=== PATIENT | male | born 1955 | race Caucasian/White ===

== ENCOUNTER 2021-02-07 14:13 | Inpatient (IN) | payer OTHER ==
[2021-02-07] MEDS ORDERED: MAG HYDROX/AL HYDROX/SIMETH 30 ML UNIT-DOSE CUP PO PRN (15:59)
[2021-02-07] MEDS ORDERED: cloNIDine HCL 0.1 MG TABLET PO PRN (15:59)
[2021-02-07] MEDS ORDERED: methaDONE HCL 10 MG TABLET (FOR DETOX USE ONLY) PO ONE (15:59)
[2021-02-07] MEDS ORDERED: ONDANSETRON *ODT* 4 MG TABLET SL PRN (15:59)
[2021-02-07] MEDS ORDERED: MAGNESIUM HYDROX 2400MG/30ML ORAL SUSPENSION 30 ML CUP PO PRN (15:59)
[2021-02-07] MEDS ORDERED: MENTHOL/PHENOL 1 EACH UD MM PRN (15:59)
[2021-02-07] MEDS ORDERED: IBUPROFEN 400 MG TABLET (FP) PO PRN (15:59)
[2021-02-07] MEDS ORDERED: MAGNESIUM CITRATE 300 ML BOTTLE PO PRN (15:59)
[2021-02-07] MEDS ORDERED: ACETAMINOPHEN 325 MG TABLET (FP) PO PRN (15:59)
[2021-02-07] MEDS ORDERED: BISMUTH SUBSALICYLATE 524 MG/30 ML PO PRN (15:59)
[2021-02-07 18:08] VITALS: BMI 21.6
[2021-02-07] MEDS: hydrOXYzine PAMOATE 25 MG CAPSULE (FP) PO SCH ×2 (18:55→22:25)
[2021-02-07] MEDS: NICOTINE 14 MG/24 HOURS TOPICAL PATCH TD SCH (18:56)
[2021-02-07] MEDS: PRENATAL VITAMINS W/ FOLIC ACID TABLET (FP) PO SCH (18:56)
[2021-02-07] MEDS: ACETAMINOPHEN 325 MG TABLET (FP) PO PRN (20:31)
[2021-02-07] MEDS: MELATONIN 5 MG TABLETS PO SCH (22:25)
[2021-02-07] MEDS: THIAMINE HCL 100 MG TABLET (FP) PO SCH (22:25)
[2021-02-07] MEDS: METHOCARBAMOL 500 MG TABLET PO PRN (22:25)
[2021-02-07] MEDS: BUDESONIDE/FORMETEROL FUMARATE 160/4.5 mcg INHALER IH SCH (22:26)
[2021-02-08] MEDS: ALBUTEROL SO4 HFA INHALER IH PRN ×3 (00:15→18:15)
[2021-02-08] MEDS: ACETAMINOPHEN 325 MG TABLET (FP) PO PRN (02:38)
[2021-02-08] MEDS: hydrOXYzine PAMOATE 25 MG CAPSULE (FP) PO SCH ×5 (06:27→22:45)
[2021-02-08] MEDS ORDERED: methaDONE HCL 10 MG TABLET (FOR DETOX USE ONLY) ONE (09:40)
[2021-02-08] MEDS: BUDESONIDE/FORMETEROL FUMARATE 160/4.5 mcg INHALER IH SCH ×2 (09:53→22:46)
[2021-02-08] MEDS: PRENATAL VITAMINS W/ FOLIC ACID TABLET (FP) PO SCH (09:53)
[2021-02-08] MEDS: METHOCARBAMOL 500 MG TABLET PO PRN ×2 (09:54→18:15)
[2021-02-08] MEDS: NICOTINE 14 MG/24 HOURS TOPICAL PATCH TD SCH (09:57)
[2021-02-08 10:42] LABS: HEMATOCRIT 35.2 % (35.4-49); HEMOGLOBIN 11.6 GM/dL (11.7-16.9); MCH 30.9 pg (25.7-33.7); MCHC 33.1 g/dl (32.0-35.9); MEAN CELL VOLUME 93.5 fl (80-96); MEAN PLT VOLUME 9.1 fl (7.5-11.1); PLATELET COUNT 195 10^3/uL (134-434); RBC 3.76 M/mm3 (4.00-5.60); RDW 13.7 % (11.9-15.9); WHITE BLOOD COUNT 6.5 K/mm3 (4.0-10.0)
[2021-02-08 10:48] LABS: ALBUMIN 3.2 g/dl (3.4-5.0)
[2021-02-08 10:49] LABS: BLOOD UREA NITROGEN 33.2 mg/dL (7-18)
[2021-02-08 10:51] LABS: CREATININE 0.8 mg/dL (0.55-1.3)
[2021-02-08 10:53] LABS: BILIRUBIN,TOTAL 0.4 mg/dL (0.2-1); TOT PROT 6.6 g/dl (6.4-8.2)
[2021-02-08] MEDS: TIOTROPIUM BROMIDE 2.5 MCG (SPIRIVA) RESPIMAT INHALER IH SCH (13:22)
[2021-02-08] MEDS: THIAMINE HCL 100 MG TABLET (FP) PO SCH (22:45)
[2021-02-08] MEDS: MELATONIN 5 MG TABLETS PO SCH (22:45)
[2021-02-09] MEDS: ACETAMINOPHEN 325 MG TABLET (FP) PO PRN (01:47)
[2021-02-09] MEDS: hydrOXYzine PAMOATE 25 MG CAPSULE (FP) PO SCH ×2 (06:07→11:56)
[2021-02-09] MEDS: ALBUTEROL SO4 HFA INHALER IH PRN (06:07)
[2021-02-09 09:52] VITALS: BP 144/85; PULSE 76; TEMP 97.1
[2021-02-09] MEDS ORDERED: methaDONE HCL 10 MG TABLET (FOR DETOX USE ONLY) PO ONE (10:00)
[2021-02-09] MEDS: BUDESONIDE/FORMETEROL FUMARATE 160/4.5 mcg INHALER IH SCH (11:55)
[2021-02-09] MEDS: TIOTROPIUM BROMIDE 2.5 MCG (SPIRIVA) RESPIMAT INHALER IH SCH (11:55)
[2021-02-09] MEDS: PRENATAL VITAMINS W/ FOLIC ACID TABLET (FP) PO SCH (11:55)
[2021-02-09] MEDS: NICOTINE 14 MG/24 HOURS TOPICAL PATCH TD SCH (11:55)
[2021-02-11] MEDS ORDERED: methaDONE HCL 10 MG TABLET (FOR DETOX USE ONLY) PO ONE (10:00)
== END 2021-02-09 12:40 | disposition left against medical advice (07) | DRG 894 ==
LOC: YASAS 14:13 → Y6N 18:00
PROVIDERS: ADMIT Allergy & Immunology; ATTEND Allergy & Immunology
PROC: HZ2ZZZZ Detoxification Services for Substance Abuse Treatment (ICD-10-PCS; principal; 2021-02-07)
DX: F11.23 Opioid dependence with withdrawal (principal); F17.210 Nicotine dependence, cigarettes, uncomplicated; J44.9 Chronic obstructive pulmonary disease, unspecified; R79.89 Other specified abnormal findings of blood chemistry; R73.09 Other abnormal glucose; R06.02 Shortness of breath; Z99.81 Dependence on supplemental oxygen
CPT/HCPCS: 36415; 80053; 85027; 86780; C9803; J0735; U0003; U0005

== ENCOUNTER 2021-05-07 12:04 | Inpatient (IN) | payer OTHER ==
[2021-05-07] MEDS ORDERED: MAGNESIUM CITRATE 300 ML BOTTLE PO PRN (12:46)
[2021-05-07] MEDS ORDERED: BISMUTH SUBSALICYLATE 524 MG/30 ML PO PRN (12:46)
[2021-05-07] MEDS ORDERED: cloNIDine HCL 0.1 MG TABLET PO PRN (12:46)
[2021-05-07] MEDS ORDERED: ACETAMINOPHEN 325 MG TABLET (FP) PO PRN ×2 (12:46)
[2021-05-07] MEDS ORDERED: ONDANSETRON *ODT* 4 MG TABLET SL PRN (12:46)
[2021-05-07] MEDS ORDERED: MENTHOL/PHENOL 1 EACH UD MM PRN (12:46)
[2021-05-07] MEDS ORDERED: MAGNESIUM HYDROX 2400MG/30ML ORAL SUSPENSION 30 ML CUP PO PRN (12:46)
[2021-05-07] MEDS ORDERED: NALOXONE (NARCAN) HCL 4 MG/0.1 ML SPRAY NS PRN (12:46)
[2021-05-07] MEDS ORDERED: NICOTINE 10 MG CARTRIDGE (INHALER) IH PRN (12:46)
[2021-05-07] MEDS ORDERED: MAG HYDROX/AL HYDROX/SIMETH 30 ML UNIT-DOSE CUP PO PRN (12:46)
[2021-05-07] MEDS ORDERED: LOPERAMIDE HCL 2 MG CAPSULE PO PRN (12:46)
[2021-05-07 14:33] VITALS: BMI 21.4
[2021-05-07] MEDS: hydrOXYzine PAMOATE 25 MG CAPSULE (FP) PO SCH ×3 (17:45→22:10)
[2021-05-07] MEDS: PRENATAL VITAMINS W/ FOLIC ACID TABLET (FP) PO SCH (17:45)
[2021-05-07] MEDS: NICOTINE 14 MG/24 HOURS TOPICAL PATCH TD SCH (17:49)
[2021-05-07] MEDS ORDERED: methaDONE HCL 10 MG TABLET (FOR DETOX USE ONLY) PO ONE (18:00)
[2021-05-07] MEDS: MELATONIN 5 MG TABLETS PO SCH (22:10)
[2021-05-07] MEDS: THIAMINE HCL 100 MG TABLET (FP) PO SCH (22:10)
[2021-05-07] MEDS: BUDESONIDE/FORMETEROL FUMARATE 160/4.5 mcg INHALER IH SCH (22:52)
[2021-05-08] MEDS: hydrOXYzine PAMOATE 25 MG CAPSULE (FP) PO SCH ×5 (07:48→22:17)
[2021-05-08] MEDS ORDERED: methaDONE HCL 10 MG TABLET (FOR DETOX USE ONLY) ONE (09:12)
[2021-05-08] MEDS: PRENATAL VITAMINS W/ FOLIC ACID TABLET (FP) PO SCH (09:36)
[2021-05-08] MEDS: NICOTINE 14 MG/24 HOURS TOPICAL PATCH TD SCH (09:36)
[2021-05-08] MEDS: IBUPROFEN 400 MG TABLET (FP) PO PRN (09:37)
[2021-05-08] MEDS: BUDESONIDE/FORMETEROL FUMARATE 160/4.5 mcg INHALER IH SCH ×2 (09:37→22:17)
[2021-05-08 09:45] LABS: HEMATOCRIT 39.6 % (35.4-49); HEMOGLOBIN 13.1 GM/dL (11.7-16.9); MCH 30.6 pg (25.7-33.7); MCHC 33.1 g/dl (32.0-35.9); MEAN CELL VOLUME 92.7 fl (80-96); MEAN PLT VOLUME 9.8 fl (7.5-11.1); PLATELET COUNT 209 10^3/uL (134-434); RBC 4.28 M/mm3 (4.00-5.60); RDW 14.2 % (11.9-15.9); WHITE BLOOD COUNT 3.8 K/mm3 (4.0-10.0)
[2021-05-08 09:51] LABS: ALBUMIN 3.9 g/dl (3.4-5.0); CALCIUM 9.8 mg/dL (8.5-10.1)
[2021-05-08 09:54] LABS: CREATININE 0.8 mg/dL (0.55-1.3)
[2021-05-08 09:56] LABS: BILIRUBIN,TOTAL 0.4 mg/dL (0.2-1); TOT PROT 7.3 g/dl (6.4-8.2)
[2021-05-08] MEDS: THIAMINE HCL 100 MG TABLET (FP) PO SCH (22:17)
[2021-05-08] MEDS: MELATONIN 5 MG TABLETS PO SCH (22:18)
[2021-05-09] MEDS: hydrOXYzine PAMOATE 25 MG CAPSULE (FP) PO SCH ×5 (06:35→22:15)
[2021-05-09 07:08] LABS: SARS-CoV-2 NAA Not Detected (Not Detected)
[2021-05-09] MEDS ORDERED: methaDONE HCL 10 MG TABLET (FOR DETOX USE ONLY) PO ONE (10:00)
[2021-05-09] MEDS: NICOTINE 14 MG/24 HOURS TOPICAL PATCH TD SCH (10:21)
[2021-05-09] MEDS: BUDESONIDE/FORMETEROL FUMARATE 160/4.5 mcg INHALER IH SCH ×2 (10:21→22:15)
[2021-05-09] MEDS: PRENATAL VITAMINS W/ FOLIC ACID TABLET (FP) PO SCH (10:21)
[2021-05-09] MEDS: IBUPROFEN 400 MG TABLET (FP) PO PRN ×2 (10:24→18:19)
[2021-05-09] MEDS: ALBUTEROL SO4 HFA INHALER IH PRN (18:18)
[2021-05-09] MEDS: THIAMINE HCL 100 MG TABLET (FP) PO SCH (22:15)
[2021-05-09] MEDS: MELATONIN 5 MG TABLETS PO SCH (22:15)
[2021-05-09] MEDS: METHOCARBAMOL 500 MG TABLET PO PRN (22:15)
[2021-05-10] MEDS: hydrOXYzine PAMOATE 25 MG CAPSULE (FP) PO SCH ×5 (07:05→22:48)
[2021-05-10] MEDS: ALBUTEROL SO4 HFA INHALER IH PRN (07:05)
[2021-05-10] MEDS ORDERED: methaDONE HCL 10 MG TABLET (FOR DETOX USE ONLY) ONE (09:53)
[2021-05-10] MEDS: NICOTINE 14 MG/24 HOURS TOPICAL PATCH TD SCH (10:40)
[2021-05-10] MEDS: BUDESONIDE/FORMETEROL FUMARATE 160/4.5 mcg INHALER IH SCH ×2 (10:40→22:47)
[2021-05-10] MEDS: PRENATAL VITAMINS W/ FOLIC ACID TABLET (FP) PO SCH (10:40)
[2021-05-10] MEDS: IBUPROFEN 400 MG TABLET (FP) PO PRN (10:44)
[2021-05-10] MEDS: MELATONIN 5 MG TABLETS PO SCH (22:48)
[2021-05-10] MEDS: THIAMINE HCL 100 MG TABLET (FP) PO SCH (22:48)
[2021-05-10] MEDS: METHOCARBAMOL 500 MG TABLET PO PRN (22:50)
[2021-05-11] MEDS: hydrOXYzine PAMOATE 25 MG CAPSULE (FP) PO SCH ×5 (07:33→22:49)
[2021-05-11] MEDS ORDERED: methaDONE HCL 10 MG TABLET (FOR DETOX USE ONLY) PO ONE (10:00)
[2021-05-11] MEDS: PRENATAL VITAMINS W/ FOLIC ACID TABLET (FP) PO SCH (10:24)
[2021-05-11] MEDS: BUDESONIDE/FORMETEROL FUMARATE 160/4.5 mcg INHALER IH SCH ×2 (10:25→22:52)
[2021-05-11] MEDS: NICOTINE 14 MG/24 HOURS TOPICAL PATCH TD SCH (10:26)
[2021-05-11] MEDS: ALBUTEROL SO4 HFA INHALER IH PRN (17:06)
[2021-05-11] MEDS: MELATONIN 5 MG TABLETS PO SCH (22:49)
[2021-05-11] MEDS: THIAMINE HCL 100 MG TABLET (FP) PO SCH (22:49)
[2021-05-11] MEDS: IBUPROFEN 400 MG TABLET (FP) PO PRN (22:50)
[2021-05-12] MEDS: hydrOXYzine PAMOATE 25 MG CAPSULE (FP) PO SCH (06:15)
[2021-05-12 09:15] VITALS: BP 147/85; PULSE 60; TEMP 97.3
== END 2021-05-12 09:20 | disposition home or self-care (01) | DRG 895 ==
LOC: YASAS 12:04 → Y3N 15:22
PROVIDERS: ADMIT Allergy & Immunology; ATTEND Allergy & Immunology
PROC: HZ42ZZZ Group Counseling for Substance Abuse Treatment, Cognitive-Behavioral (ICD-10-PCS; principal; 2021-05-07)
DX: F11.20 Opioid dependence, uncomplicated (principal); F17.210 Nicotine dependence, cigarettes, uncomplicated; J44.9 Chronic obstructive pulmonary disease, unspecified
CPT/HCPCS: 36415; 71046-TC-FY; 80053; 85027; 86780; 93005; 93010; C9803-CS; J0735; U0003; U0005

== ENCOUNTER 2021-07-12 11:44 | Inpatient (IN) | payer OTHER ==
[2021-07-12 12:16] VITALS: BMI 20.9
[2021-07-12] MEDS ORDERED: ACETAMINOPHEN 325 MG TABLET (FP) PO PRN (13:25)
[2021-07-12] MEDS ORDERED: MAGNESIUM HYDROX 2400MG/30ML ORAL SUSPENSION 30 ML CUP PO PRN (13:25)
[2021-07-12] MEDS ORDERED: NICOTINE 10 MG CARTRIDGE (INHALER) IH PRN (13:25)
[2021-07-12] MEDS ORDERED: DICYCLOMINE HCL 10 MG CAPSULE PO PRN (13:25)
[2021-07-12] MEDS ORDERED: methaDONE HCL 10 MG TABLET (FOR DETOX USE ONLY) PO ONE (13:25)
[2021-07-12] MEDS ORDERED: NALOXONE HCL (KLOXXADO) 8 MG SPRAY NS PRN (13:25)
[2021-07-12] MEDS ORDERED: MAG HYDROX/AL HYDROX/SIMETH 30 ML UNIT-DOSE CUP PO PRN (13:25)
[2021-07-12] MEDS ORDERED: cloNIDine HCL 0.1 MG TABLET PO PRN (13:25)
[2021-07-12] MEDS ORDERED: MAGNESIUM CITRATE 300 ML BOTTLE PO PRN (13:25)
[2021-07-12] MEDS ORDERED: BENZOCAINE/MENTHOL (CHLORASEPTIC ) LOZENGE MM PRN (13:25)
[2021-07-12] MEDS ORDERED: BISMUTH SUBSALICYLATE 524 MG/30 ML PO PRN (13:25)
[2021-07-12] MEDS ORDERED: ONDANSETRON *ODT* 4 MG TABLET SL PRN (13:25)
[2021-07-12] MEDS ORDERED: LOPERAMIDE HCL 2 MG CAPSULE PO PRN (13:25)
[2021-07-12] MEDS ORDERED: ALBUTEROL SO4 HFA INHALER IH PRN (13:31)
[2021-07-12] MEDS ORDERED: FLUTICASONE/UMECLIDIN/VILANTER(100-62.5-25 TRELEGY ELLIPTA) INAHLER IH SCH (13:45)
[2021-07-12] MEDS ORDERED: methaDONE HCL 10 MG TABLET (FOR DETOX USE ONLY) ONE (15:04)
[2021-07-12] MEDS: hydrOXYzine PAMOATE 25 MG CAPSULE (FP) PO SCH ×3 (15:18→21:41)
[2021-07-12] MEDS: METHOCARBAMOL 500 MG TABLET PO PRN (15:18)
[2021-07-12] MEDS: NICOTINE 7 MG/24 HOURS TOPICAL PATCH TD SCH (15:19)
[2021-07-12] MEDS: PRENATAL VITAMINS W/ FOLIC ACID TABLET (FP) PO SCH (15:19)
[2021-07-12] MEDS: ALBUTEROL SO4 HFA INHALER IH PRN (15:35)
[2021-07-12] MEDS: ACETAMINOPHEN 325 MG TABLET (FP) PO PRN (18:14)
[2021-07-12] MEDS: THIAMINE HCL 100 MG TABLET (FP) PO SCH (21:40)
[2021-07-12] MEDS: ATORVASTATIN CA 10 MG TABLET (FP) PO SCH (21:40)
[2021-07-12] MEDS: MELATONIN 5 MG TABLETS PO SCH (21:41)
[2021-07-12] MEDS: SODIUM CHLORIDE NASAL SPRAY 44 ML BOTTLE NS PRN (21:42)
[2021-07-12] MEDS ORDERED: BUDESONIDE/FORMETEROL FUMARATE 160/4.5 mcg INHALER IH SCH (22:00)
[2021-07-13] MEDS: SODIUM CHLORIDE NASAL SPRAY 44 ML BOTTLE NS PRN (03:19)
[2021-07-13] MEDS: ALBUTEROL SO4 HFA INHALER IH PRN ×2 (03:21→07:21)
[2021-07-13] MEDS: ACETAMINOPHEN 325 MG TABLET (FP) PO PRN ×2 (07:03→16:10)
[2021-07-13] MEDS: hydrOXYzine PAMOATE 25 MG CAPSULE (FP) PO SCH ×5 (07:03→23:19)
[2021-07-13] MEDS: METHOCARBAMOL 500 MG TABLET PO PRN ×3 (07:03→23:20)
[2021-07-13] MEDS ORDERED: methaDONE HCL 10 MG TABLET (FOR DETOX USE ONLY) ONE (09:13)
[2021-07-13] MEDS: glipiZIDE-XL 5 MG TAB.ER.24 PO SCH (10:12)
[2021-07-13 10:13] LABS: HEMATOCRIT 39.2 % (35.4-49); HEMOGLOBIN 12.8 GM/dL (11.7-16.9); MCH 30.3 pg (25.7-33.7); MCHC 32.6 g/dl (32.0-35.9); MEAN CELL VOLUME 92.9 fl (80-96); PLATELET COUNT 142 10^3/uL (134-434); RBC 4.22 M/mm3 (4.00-5.60); RDW 15.5 % (11.9-15.9); WHITE BLOOD COUNT 5.3 K/mm3 (4.0-10.0)
[2021-07-13] MEDS: FLUTICASONE/UMECLIDIN/VILANTER(100-62.5-25 TRELEGY ELLIPTA) INAHLER IH SCH (10:13)
[2021-07-13] MEDS: LISINOPRIL 5 MG TABLET PO SCH (10:13)
[2021-07-13] MEDS: PRENATAL VITAMINS W/ FOLIC ACID TABLET (FP) PO SCH (10:13)
[2021-07-13] MEDS: MONTELUKAST NA 10 MG TABLET PO SCH (10:13)
[2021-07-13] MEDS: NICOTINE 7 MG/24 HOURS TOPICAL PATCH TD SCH (10:13)
[2021-07-13] MEDS: FLUTICASONE PROP 0.05% 16 GM NASAL SPRAY NS PRN (10:14)
[2021-07-13 10:26] LABS: BLOOD UREA NITROGEN 20.7 mg/dL (7-18); CALCIUM 9.3 mg/dL (8.5-10.1)
[2021-07-13 10:27] LABS: ALBUMIN 3.4 g/dl (3.4-5.0)
[2021-07-13 10:30] LABS: CREATININE 0.6 mg/dL (0.55-1.3)
[2021-07-13 10:31] LABS: BILIRUBIN,TOTAL 0.5 mg/dL (0.2-1); TOT PROT 6.5 g/dl (6.4-8.2)
[2021-07-13] MEDS: ATORVASTATIN CA 10 MG TABLET (FP) PO SCH (23:19)
[2021-07-13] MEDS: THIAMINE HCL 100 MG TABLET (FP) PO SCH (23:19)
[2021-07-13] MEDS: MELATONIN 5 MG TABLETS PO SCH (23:19)
[2021-07-13] MEDS: IBUPROFEN 400 MG TABLET (FP) PO PRN (23:20)
[2021-07-14] MEDS: hydrOXYzine PAMOATE 25 MG CAPSULE (FP) PO SCH ×5 (06:59→21:38)
[2021-07-14] MEDS: glipiZIDE-XL 5 MG TAB.ER.24 PO SCH (06:59)
[2021-07-14] MEDS: PRENATAL VITAMINS W/ FOLIC ACID TABLET (FP) PO SCH (09:55)
[2021-07-14] MEDS: NICOTINE 7 MG/24 HOURS TOPICAL PATCH TD SCH (09:55)
[2021-07-14] MEDS: MONTELUKAST NA 10 MG TABLET PO SCH (09:55)
[2021-07-14] MEDS: LISINOPRIL 5 MG TABLET PO SCH (09:55)
[2021-07-14] MEDS: FLUTICASONE/UMECLIDIN/VILANTER(100-62.5-25 TRELEGY ELLIPTA) INAHLER IH SCH (09:58)
[2021-07-14] MEDS ORDERED: methaDONE HCL 10 MG TABLET (FOR DETOX USE ONLY) PO ONE (10:00)
[2021-07-14] MEDS: SODIUM CHLORIDE NASAL SPRAY 44 ML BOTTLE NS PRN (12:05)
[2021-07-14] MEDS: MELATONIN 5 MG TABLETS PO SCH (21:35)
[2021-07-14] MEDS: ATORVASTATIN CA 10 MG TABLET (FP) PO SCH (21:37)
[2021-07-14] MEDS: THIAMINE HCL 100 MG TABLET (FP) PO SCH (21:40)
[2021-07-15] MEDS: hydrOXYzine PAMOATE 25 MG CAPSULE (FP) PO SCH ×5 (06:26→22:40)
[2021-07-15] MEDS: glipiZIDE-XL 5 MG TAB.ER.24 PO SCH (06:26)
[2021-07-15] MEDS: FLUTICASONE PROP 0.05% 16 GM NASAL SPRAY NS PRN (11:19)
[2021-07-15] MEDS: PRENATAL VITAMINS W/ FOLIC ACID TABLET (FP) PO SCH (11:20)
[2021-07-15] MEDS: MONTELUKAST NA 10 MG TABLET PO SCH (11:20)
[2021-07-15] MEDS: LISINOPRIL 5 MG TABLET PO SCH (11:20)
[2021-07-15] MEDS ORDERED: methaDONE HCL 10 MG TABLET (FOR DETOX USE ONLY) ONE (11:21)
[2021-07-15] MEDS: NICOTINE 7 MG/24 HOURS TOPICAL PATCH TD SCH (11:22)
[2021-07-15] MEDS: FLUTICASONE/UMECLIDIN/VILANTER(100-62.5-25 TRELEGY ELLIPTA) INAHLER IH SCH (11:23)
[2021-07-15] MEDS: METHOCARBAMOL 500 MG TABLET PO PRN ×2 (14:52→18:38)
[2021-07-15] MEDS: IBUPROFEN 400 MG TABLET (FP) PO PRN ×2 (14:53→18:39)
[2021-07-15] MEDS: ALBUTEROL SO4 HFA INHALER IH PRN (18:39)
[2021-07-15] MEDS: MELATONIN 5 MG TABLETS PO SCH (22:40)
[2021-07-15] MEDS: ATORVASTATIN CA 10 MG TABLET (FP) PO SCH (22:40)
[2021-07-15] MEDS: THIAMINE HCL 100 MG TABLET (FP) PO SCH (22:40)
[2021-07-15] MEDS: ACETAMINOPHEN 325 MG TABLET (FP) PO PRN (22:42)
[2021-07-16] MEDS: IBUPROFEN 400 MG TABLET (FP) PO PRN ×3 (04:02→18:38)
[2021-07-16] MEDS: METHOCARBAMOL 500 MG TABLET PO PRN ×2 (04:02→22:39)
[2021-07-16] MEDS: glipiZIDE-XL 5 MG TAB.ER.24 PO SCH (06:39)
[2021-07-16] MEDS: hydrOXYzine PAMOATE 25 MG CAPSULE (FP) PO SCH ×5 (06:39→22:38)
[2021-07-16] MEDS ORDERED: methaDONE HCL 10 MG TABLET (FOR DETOX USE ONLY) PO ONE (10:00)
[2021-07-16] MEDS: MONTELUKAST NA 10 MG TABLET PO SCH (11:05)
[2021-07-16] MEDS: PRENATAL VITAMINS W/ FOLIC ACID TABLET (FP) PO SCH (11:05)
[2021-07-16] MEDS: LISINOPRIL 5 MG TABLET PO SCH (11:05)
[2021-07-16] MEDS: FLUTICASONE/UMECLIDIN/VILANTER(100-62.5-25 TRELEGY ELLIPTA) INAHLER IH SCH (11:05)
[2021-07-16] MEDS: NICOTINE 7 MG/24 HOURS TOPICAL PATCH TD SCH (11:05)
[2021-07-16] MEDS: THIAMINE HCL 100 MG TABLET (FP) PO SCH (22:38)
[2021-07-16] MEDS: MELATONIN 5 MG TABLETS PO SCH (22:38)
[2021-07-16] MEDS: ATORVASTATIN CA 10 MG TABLET (FP) PO SCH (22:38)
[2021-07-17] MEDS: METHOCARBAMOL 500 MG TABLET PO PRN (05:44)
[2021-07-17] MEDS: hydrOXYzine PAMOATE 25 MG CAPSULE (FP) PO SCH ×2 (05:44→10:23)
[2021-07-17] MEDS: IBUPROFEN 400 MG TABLET (FP) PO PRN (05:44)
[2021-07-17] MEDS: glipiZIDE-XL 5 MG TAB.ER.24 PO SCH (06:28)
[2021-07-17 08:46] VITALS: BP 129/75; PULSE 60; TEMP 96.8
[2021-07-17] MEDS: LISINOPRIL 5 MG TABLET PO SCH (10:23)
[2021-07-17] MEDS: PRENATAL VITAMINS W/ FOLIC ACID TABLET (FP) PO SCH (10:23)
[2021-07-17] MEDS: NICOTINE 7 MG/24 HOURS TOPICAL PATCH TD SCH (10:23)
[2021-07-17] MEDS: MONTELUKAST NA 10 MG TABLET PO SCH (10:23)
[2021-07-17] MEDS: FLUTICASONE/UMECLIDIN/VILANTER(100-62.5-25 TRELEGY ELLIPTA) INAHLER IH SCH (10:26)
== END 2021-07-17 11:30 | disposition home or self-care (01) | DRG 896 ==
LOC: YASAS 11:44 → Y3N 14:05
PROVIDERS: ADMIT Allergy & Immunology; ATTEND Surgery
PROC: HZ2ZZZZ Detoxification Services for Substance Abuse Treatment (ICD-10-PCS; principal; 2021-07-12)
DX: F11.23 Opioid dependence with withdrawal (principal); U07.1 COVID-19; F17.210 Nicotine dependence, cigarettes, uncomplicated; F19.29 Other psychoactive substance dependence with unspecified psychoactive substance-induced disorder; F41.9 Anxiety disorder, unspecified; F32.A Depression, unspecified; E11.9 Type 2 diabetes mellitus without complications; Z79.84 Long term (current) use of oral hypoglycemic drugs; I10 Essential (primary) hypertension; J44.9 Chronic obstructive pulmonary disease, unspecified; M17.11 Unilateral primary osteoarthritis, right knee; Z99.89 Dependence on other enabling machines and devices; Z91.013 Allergy to seafood
CPT/HCPCS: 36415; 80053; 82962; 85027; 86780; 87811; C9803-CS; J0735; U0003; U0005

== ENCOUNTER 2021-08-28 12:24 | Inpatient (IN) | payer OTHER ==
[2021-08-28 15:13] VITALS: BMI 20.9
[2021-08-28] MEDS ORDERED: methaDONE HCL 10 MG TABLET (FOR DETOX USE ONLY) PO ONE (15:16)
[2021-08-28] MEDS ORDERED: cloNIDine HCL 0.1 MG TABLET PO PRN (15:16)
[2021-08-28] MEDS ORDERED: BISMUTH SUBSALICYLATE 524 MG/30 ML PO PRN (15:20)
[2021-08-28] MEDS ORDERED: MAG HYDROX/AL HYDROX/SIMETH 30 ML UNIT-DOSE CUP PO PRN (15:20)
[2021-08-28] MEDS ORDERED: ONDANSETRON *ODT* 4 MG TABLET SL PRN (15:20)
[2021-08-28] MEDS ORDERED: IBUPROFEN 400 MG TABLET (FP) PO PRN (15:20)
[2021-08-28] MEDS ORDERED: ACETAMINOPHEN 325 MG TABLET (FP) PO PRN ×2 (15:20)
[2021-08-28] MEDS ORDERED: DICYCLOMINE HCL 10 MG CAPSULE PO PRN (15:20)
[2021-08-28] MEDS ORDERED: NICOTINE 10 MG CARTRIDGE (INHALER) IH PRN (15:20)
[2021-08-28] MEDS ORDERED: MAGNESIUM CITRATE 300 ML BOTTLE PO PRN (15:20)
[2021-08-28] MEDS ORDERED: LOPERAMIDE HCL 2 MG CAPSULE PO PRN (15:20)
[2021-08-28] MEDS ORDERED: MAGNESIUM HYDROX 2400MG/30ML ORAL SUSPENSION 30 ML CUP PO PRN (15:20)
[2021-08-28] MEDS ORDERED: IBUPROFEN 600 MG TABLET (FP) PO PRN (15:20)
[2021-08-28] MEDS ORDERED: BENZOCAINE/MENTHOL (CHLORASEPTIC ) LOZENGE MM PRN (15:20)
[2021-08-28] MEDS ORDERED: methaDONE HCL 10 MG TABLET (FOR DETOX USE ONLY) ONE (17:26)
[2021-08-28] MEDS: NICOTINE 7 MG/24 HOURS TOPICAL PATCH TD SCH (19:14)
[2021-08-28] MEDS: PRENATAL VITAMINS W/ FOLIC ACID TABLET (FP) PO SCH (19:15)
[2021-08-28] MEDS: hydrOXYzine PAMOATE 25 MG CAPSULE (FP) PO SCH ×2 (19:15→22:55)
[2021-08-28] MEDS: MELATONIN 5 MG TABLETS PO SCH (22:54)
[2021-08-28] MEDS: THIAMINE HCL 100 MG TABLET (FP) PO SCH (22:55)
[2021-08-28] MEDS: ATORVASTATIN CA 10 MG TABLET (FP) PO SCH (22:55)
[2021-08-28] MEDS: FLUTICASONE PROP 0.05% 16 GM NASAL SPRAY NS PRN (22:59)
[2021-08-28] MEDS: ALBUTEROL SO4 HFA INHALER IH PRN (23:00)
[2021-08-29] MEDS: hydrOXYzine PAMOATE 25 MG CAPSULE (FP) PO SCH ×5 (05:16→22:24)
[2021-08-29] MEDS: glipiZIDE-XL 5 MG TAB.ER.24 PO SCH (07:48)
[2021-08-29] MEDS ORDERED: methaDONE HCL 10 MG TABLET (FOR DETOX USE ONLY) PO ONE (10:00)
[2021-08-29] MEDS: PRENATAL VITAMINS W/ FOLIC ACID TABLET (FP) PO SCH (10:13)
[2021-08-29] MEDS: LISINOPRIL 5 MG TABLET PO SCH (10:13)
[2021-08-29] MEDS: FLUTICASONE/UMECLIDIN/VILANTER(100-62.5-25 TRELEGY ELLIPTA) INAHLER IH SCH (10:14)
[2021-08-29] MEDS: MONTELUKAST NA 10 MG TABLET PO SCH (10:15)
[2021-08-29] MEDS: NICOTINE 7 MG/24 HOURS TOPICAL PATCH TD SCH (10:15)
[2021-08-29 11:11] LABS: HEMATOCRIT 36.4 % (35.4-49); HEMOGLOBIN 11.8 GM/dL (11.7-16.9); MCH 31.4 pg (25.7-33.7); MCHC 32.4 g/dl (32.0-35.9); MEAN CELL VOLUME 96.8 fl (80-96); MEAN PLT VOLUME 8.5 fl (7.5-11.1); PLATELET COUNT 207 10^3/uL (134-434); RBC 3.76 M/mm3 (4.00-5.60); WHITE BLOOD COUNT 5.8 K/mm3 (4.0-10.0)
[2021-08-29 12:01] LABS: ALBUMIN 3.4 g/dl (3.4-5.0); BLOOD UREA NITROGEN 28.2 mg/dL (7-18); CALCIUM 9.1 mg/dL (8.5-10.1)
[2021-08-29 12:04] LABS: BILIRUBIN,TOTAL 0.3 mg/dL (0.2-1); CREATININE 0.6 mg/dL (0.55-1.3); TOT PROT 6.5 g/dl (6.4-8.2)
[2021-08-29] MEDS: ALBUTEROL SO4 HFA INHALER IH PRN (13:44)
[2021-08-29] MEDS: ATORVASTATIN CA 10 MG TABLET (FP) PO SCH (22:24)
[2021-08-29] MEDS: MELATONIN 5 MG TABLETS PO SCH (22:25)
[2021-08-29] MEDS: THIAMINE HCL 100 MG TABLET (FP) PO SCH (22:25)
[2021-08-29] MEDS: FLUTICASONE PROP 0.05% 16 GM NASAL SPRAY NS PRN (22:26)
[2021-08-29] MEDS: clonazePAM 0.5 MG ODT TABLETS SL PRN (22:27)
[2021-08-30] MEDS: hydrOXYzine PAMOATE 25 MG CAPSULE (FP) PO SCH ×5 (05:54→22:33)
[2021-08-30] MEDS: METHOCARBAMOL 500 MG TABLET PO PRN (05:54)
[2021-08-30] MEDS: glipiZIDE-XL 5 MG TAB.ER.24 PO SCH (06:20)
[2021-08-30] MEDS: PRENATAL VITAMINS W/ FOLIC ACID TABLET (FP) PO SCH (10:15)
[2021-08-30] MEDS: MONTELUKAST NA 10 MG TABLET PO SCH (10:16)
[2021-08-30] MEDS: LISINOPRIL 5 MG TABLET PO SCH (10:16)
[2021-08-30] MEDS: FLUTICASONE/UMECLIDIN/VILANTER(100-62.5-25 TRELEGY ELLIPTA) INAHLER IH SCH (10:16)
[2021-08-30] MEDS: NICOTINE 7 MG/24 HOURS TOPICAL PATCH TD SCH (10:19)
[2021-08-30] MEDS ORDERED: predniSONE 20 MG TABLET (UD) PO ONE (10:44)
[2021-08-30] MEDS: MELATONIN 5 MG TABLETS PO SCH (22:33)
[2021-08-30] MEDS: THIAMINE HCL 100 MG TABLET (FP) PO SCH (22:33)
[2021-08-30] MEDS: ATORVASTATIN CA 10 MG TABLET (FP) PO SCH (22:33)
[2021-08-30] MEDS: clonazePAM 0.5 MG ODT TABLETS SL PRN (22:34)
[2021-08-31] MEDS: clonazePAM 0.5 MG ODT TABLETS SL PRN (04:17)
[2021-08-31] MEDS: METHOCARBAMOL 500 MG TABLET PO PRN ×2 (05:31→23:30)
[2021-08-31] MEDS: hydrOXYzine PAMOATE 25 MG CAPSULE (FP) PO SCH ×5 (05:35→22:35)
[2021-08-31] MEDS: glipiZIDE-XL 5 MG TAB.ER.24 PO SCH (07:09)
[2021-08-31] MEDS ORDERED: methaDONE HCL 10 MG TABLET (FOR DETOX USE ONLY) PO ONE (10:00)
[2021-08-31] MEDS ORDERED: predniSONE 10 MG TABLET (UD) PO ONE (10:00)
[2021-08-31] MEDS: LISINOPRIL 5 MG TABLET PO SCH (10:33)
[2021-08-31] MEDS: MONTELUKAST NA 10 MG TABLET PO SCH (10:33)
[2021-08-31] MEDS: PRENATAL VITAMINS W/ FOLIC ACID TABLET (FP) PO SCH (10:34)
[2021-08-31] MEDS: FLUTICASONE/UMECLIDIN/VILANTER(100-62.5-25 TRELEGY ELLIPTA) INAHLER IH SCH (10:36)
[2021-08-31] MEDS: NICOTINE 7 MG/24 HOURS TOPICAL PATCH TD SCH (10:36)
[2021-08-31] MEDS: ATORVASTATIN CA 10 MG TABLET (FP) PO SCH (22:35)
[2021-08-31] MEDS: MELATONIN 5 MG TABLETS PO SCH (22:35)
[2021-08-31] MEDS: THIAMINE HCL 100 MG TABLET (FP) PO SCH (22:35)
[2021-08-31] MEDS: FLUTICASONE PROP 0.05% 16 GM NASAL SPRAY NS PRN (22:37)
[2021-09-01] MEDS ORDERED: traZODone HCL 50 MG TABLET (FP) PO ONE (01:20)
[2021-09-01] MEDS: hydrOXYzine PAMOATE 25 MG CAPSULE (FP) PO SCH ×2 (05:14→10:48)
[2021-09-01] MEDS: glipiZIDE-XL 5 MG TAB.ER.24 PO SCH (06:20)
[2021-09-01 09:49] VITALS: BP 129/68; PULSE 73; TEMP 97.7
[2021-09-01] MEDS ORDERED: predniSONE 20 MG TABLET (UD) PO ONE (10:00)
[2021-09-01] MEDS: FLUTICASONE/UMECLIDIN/VILANTER(100-62.5-25 TRELEGY ELLIPTA) INAHLER IH SCH (10:47)
[2021-09-01] MEDS: NICOTINE 7 MG/24 HOURS TOPICAL PATCH TD SCH (10:47)
[2021-09-01] MEDS: PRENATAL VITAMINS W/ FOLIC ACID TABLET (FP) PO SCH (10:47)
[2021-09-01] MEDS: MONTELUKAST NA 10 MG TABLET PO SCH (10:48)
[2021-09-01] MEDS: LISINOPRIL 5 MG TABLET PO SCH (10:48)
[2021-09-02] MEDS ORDERED: predniSONE 10 MG TABLET (UD) PO ONE (10:00)
[2021-09-03] MEDS ORDERED: predniSONE 5 MG TABLET (UD) PO ONE (06:00)
== END 2021-09-01 11:49 | disposition home or self-care (01) | DRG 897 ==
LOC: YASAS 12:24 → Y3N 15:48
PROVIDERS: ADMIT Allergy & Immunology; ATTEND Surgery
PROC: HZ2ZZZZ Detoxification Services for Substance Abuse Treatment (ICD-10-PCS; principal; 2021-08-28)
DX: F11.23 Opioid dependence with withdrawal (principal); F17.210 Nicotine dependence, cigarettes, uncomplicated; I10 Essential (primary) hypertension; J44.9 Chronic obstructive pulmonary disease, unspecified; E78.5 Hyperlipidemia, unspecified; E11.9 Type 2 diabetes mellitus without complications; Z79.84 Long term (current) use of oral hypoglycemic drugs; M17.11 Unilateral primary osteoarthritis, right knee; Z99.89 Dependence on other enabling machines and devices; Z59.00 Homelessness unspecified
CPT/HCPCS: 36415; 80053; 82962; 85027; 86780; C9803-CS; U0003; U0005

== ENCOUNTER 2021-10-01 10:06 | Inpatient (IN) | payer OTHER ==
[2021-10-01 10:54] VITALS: BMI 20.5
[2021-10-01] MEDS ORDERED: BENZOCAINE/MENTHOL (CHLORASEPTIC ) LOZENGE MM PRN (11:42)
[2021-10-01] MEDS ORDERED: MAGNESIUM CITRATE 300 ML BOTTLE PO PRN (11:42)
[2021-10-01] MEDS ORDERED: NICOTINE 10 MG CARTRIDGE (INHALER) IH PRN (11:42)
[2021-10-01] MEDS ORDERED: LOPERAMIDE HCL 2 MG CAPSULE PO PRN (11:42)
[2021-10-01] MEDS ORDERED: MAGNESIUM HYDROX 2400MG/30ML ORAL SUSPENSION 30 ML CUP PO PRN (11:42)
[2021-10-01] MEDS ORDERED: ONDANSETRON *ODT* 4 MG TABLET SL PRN (11:42)
[2021-10-01] MEDS ORDERED: DICYCLOMINE HCL 10 MG CAPSULE PO PRN (11:42)
[2021-10-01] MEDS ORDERED: BISMUTH SUBSALICYLATE 524 MG/30 ML PO PRN (11:42)
[2021-10-01] MEDS ORDERED: ACETAMINOPHEN 325 MG TABLET (FP) PO PRN (11:42)
[2021-10-01] MEDS ORDERED: MAG HYDROX/AL HYDROX/SIMETH 30 ML UNIT-DOSE CUP PO PRN (11:42)
[2021-10-01] MEDS ORDERED: methaDONE HCL 10 MG TABLET (FOR DETOX USE ONLY) PO ONE (12:30)
[2021-10-01] MEDS: PRENATAL VITAMINS W/ FOLIC ACID TABLET (FP) PO SCH (12:50)
[2021-10-01] MEDS: LISINOPRIL 5 MG TABLET PO SCH (12:50)
[2021-10-01] MEDS: MONTELUKAST NA 10 MG TABLET PO SCH (12:51)
[2021-10-01] MEDS: METHOCARBAMOL 500 MG TABLET PO PRN (12:52)
[2021-10-01] MEDS: FLUTICASONE/UMECLIDIN/VILANTER(100-62.5-25 TRELEGY ELLIPTA) INAHLER IH SCH (14:45)
[2021-10-01] MEDS: MELATONIN 5 MG TABLETS PO SCH (22:35)
[2021-10-01] MEDS: THIAMINE HCL 100 MG TABLET (FP) PO SCH (22:35)
[2021-10-01] MEDS: ATORVASTATIN CA 10 MG TABLET (FP) PO SCH (22:35)
[2021-10-01] MEDS: ALBUTEROL SO4 HFA INHALER IH PRN (22:36)
[2021-10-01] MEDS: hydrOXYzine PAMOATE 25 MG CAPSULE (FP) PO PRN (22:37)
[2021-10-02] MEDS: ALBUTEROL SO4 HFA INHALER IH PRN (07:34)
[2021-10-02] MEDS: IBUPROFEN 600 MG TABLET (FP) PO PRN (07:39)
[2021-10-02] MEDS: hydrOXYzine PAMOATE 25 MG CAPSULE (FP) PO PRN ×2 (07:39→10:14)
[2021-10-02] MEDS: FLUTICASONE/UMECLIDIN/VILANTER(100-62.5-25 TRELEGY ELLIPTA) INAHLER IH SCH (10:16)
[2021-10-02] MEDS: PRENATAL VITAMINS W/ FOLIC ACID TABLET (FP) PO SCH (10:16)
[2021-10-02] MEDS: LISINOPRIL 5 MG TABLET PO SCH (10:16)
[2021-10-02] MEDS: METHOCARBAMOL 500 MG TABLET PO PRN (10:16)
[2021-10-02] MEDS: MONTELUKAST NA 10 MG TABLET PO SCH (10:16)
[2021-10-02] MEDS ORDERED: predniSONE 20 MG TABLET (UD) PO ONE (10:58)
[2021-10-02 12:28] LABS: HEMATOCRIT 37.4 % (35.4-49); HEMOGLOBIN 12.7 GM/dL (11.7-16.9); MCH 32.9 pg (25.7-33.7); MCHC 33.9 g/dl (32.0-35.9); MEAN CELL VOLUME 97.1 fl (80-96); MEAN PLT VOLUME 8.5 fl (7.5-11.1); PLATELET COUNT 209 10^3/uL (134-434); RBC 3.85 M/mm3 (4.00-5.60); RDW 15.6 % (11.9-15.9); WHITE BLOOD COUNT 7.1 K/mm3 (4.0-10.0)
[2021-10-02 12:34] LABS: CALCIUM 9.1 mg/dL (8.5-10.1)
[2021-10-02 12:35] LABS: ALBUMIN 3.5 g/dl (3.4-5.0); BLOOD UREA NITROGEN 29.7 mg/dL (7-18)
[2021-10-02 12:38] LABS: CREATININE 0.8 mg/dL (0.55-1.3)
[2021-10-02 12:39] LABS: BILIRUBIN,TOTAL 0.7 mg/dL (0.2-1); TOT PROT 6.8 g/dl (6.4-8.2)
[2021-10-02] MEDS: MELATONIN 5 MG TABLETS PO SCH (22:44)
[2021-10-02] MEDS: THIAMINE HCL 100 MG TABLET (FP) PO SCH (22:44)
[2021-10-02] MEDS: ATORVASTATIN CA 10 MG TABLET (FP) PO SCH (22:44)
[2021-10-03] MEDS: cloNIDine HCL 0.1 MG TABLET PO PRN ×2 (06:58→20:19)
[2021-10-03] MEDS: IBUPROFEN 600 MG TABLET (FP) PO PRN (06:58)
[2021-10-03] MEDS: ALBUTEROL SO4 HFA INHALER IH PRN ×2 (07:00→22:27)
[2021-10-03] MEDS ORDERED: methaDONE HCL 10 MG TABLET (FOR DETOX USE ONLY) PO ONE (10:00)
[2021-10-03] MEDS ORDERED: predniSONE 10 MG TABLET (UD) PO ONE (10:00)
[2021-10-03] MEDS: PRENATAL VITAMINS W/ FOLIC ACID TABLET (FP) PO SCH (10:32)
[2021-10-03] MEDS: METHOCARBAMOL 500 MG TABLET PO PRN (10:32)
[2021-10-03] MEDS: hydrOXYzine PAMOATE 25 MG CAPSULE (FP) PO PRN ×2 (10:32→17:58)
[2021-10-03] MEDS: LISINOPRIL 5 MG TABLET PO SCH (10:32)
[2021-10-03] MEDS: FLUTICASONE/UMECLIDIN/VILANTER(100-62.5-25 TRELEGY ELLIPTA) INAHLER IH SCH (10:33)
[2021-10-03] MEDS: MONTELUKAST NA 10 MG TABLET PO SCH (10:33)
[2021-10-03] MEDS: FLUTICASONE PROP 0.05% 16 GM NASAL SPRAY NS SCH ×2 (11:32→22:27)
[2021-10-03] MEDS: IBUPROFEN 400 MG TABLET (FP) PO PRN (17:58)
[2021-10-03] MEDS: ACETAMINOPHEN 325 MG TABLET (FP) PO PRN (20:19)
[2021-10-03] MEDS: MELATONIN 5 MG TABLETS PO SCH (22:25)
[2021-10-03] MEDS: ATORVASTATIN CA 10 MG TABLET (FP) PO SCH (22:26)
[2021-10-03] MEDS: THIAMINE HCL 100 MG TABLET (FP) PO SCH (22:27)
[2021-10-04] MEDS: ALBUTEROL SO4 HFA INHALER IH PRN ×3 (07:05→22:33)
[2021-10-04] MEDS ORDERED: predniSONE 20 MG TABLET (UD) PO ONE (10:00)
[2021-10-04] MEDS: LISINOPRIL 5 MG TABLET PO SCH (10:36)
[2021-10-04] MEDS: FLUTICASONE PROP 0.05% 16 GM NASAL SPRAY NS SCH ×2 (10:36→22:33)
[2021-10-04] MEDS: METHOCARBAMOL 500 MG TABLET PO PRN (10:36)
[2021-10-04] MEDS: hydrOXYzine PAMOATE 25 MG CAPSULE (FP) PO PRN ×3 (10:37→22:32)
[2021-10-04] MEDS: MONTELUKAST NA 10 MG TABLET PO SCH (10:38)
[2021-10-04] MEDS: PRENATAL VITAMINS W/ FOLIC ACID TABLET (FP) PO SCH (10:38)
[2021-10-04] MEDS: FLUTICASONE/UMECLIDIN/VILANTER(100-62.5-25 TRELEGY ELLIPTA) INAHLER IH SCH (10:38)
[2021-10-04] MEDS: HYDROCORTISONE 2.5% TOPICAL CREAM 30 GM TUBE RC SCH (12:21)
[2021-10-04] MEDS: IBUPROFEN 400 MG TABLET (FP) PO PRN (18:01)
[2021-10-04] MEDS: THIAMINE HCL 100 MG TABLET (FP) PO SCH (22:32)
[2021-10-04] MEDS: ATORVASTATIN CA 10 MG TABLET (FP) PO SCH (22:32)
[2021-10-04] MEDS: MELATONIN 5 MG TABLETS PO SCH (22:33)
[2021-10-05] MEDS: IBUPROFEN 600 MG TABLET (FP) PO PRN (07:51)
[2021-10-05] MEDS ORDERED: methaDONE HCL 10 MG TABLET (FOR DETOX USE ONLY) PO ONE (10:00)
[2021-10-05] MEDS ORDERED: predniSONE 10 MG TABLET (UD) PO ONE (10:00)
[2021-10-05] MEDS: LISINOPRIL 5 MG TABLET PO SCH (10:18)
[2021-10-05] MEDS: PRENATAL VITAMINS W/ FOLIC ACID TABLET (FP) PO SCH (10:18)
[2021-10-05] MEDS: FLUTICASONE PROP 0.05% 16 GM NASAL SPRAY NS SCH ×2 (10:18→22:37)
[2021-10-05] MEDS: hydrOXYzine PAMOATE 25 MG CAPSULE (FP) PO PRN (10:19)
[2021-10-05] MEDS: MONTELUKAST NA 10 MG TABLET PO SCH (10:19)
[2021-10-05] MEDS: FLUTICASONE/UMECLIDIN/VILANTER(100-62.5-25 TRELEGY ELLIPTA) INAHLER IH SCH (10:20)
[2021-10-05] MEDS: HYDROCORTISONE 2.5% TOPICAL CREAM 30 GM TUBE RC SCH (10:20)
[2021-10-05] MEDS: ACETAMINOPHEN 325 MG TABLET (FP) PO PRN (14:02)
[2021-10-05] MEDS: ATORVASTATIN CA 10 MG TABLET (FP) PO SCH (22:36)
[2021-10-05] MEDS: THIAMINE HCL 100 MG TABLET (FP) PO SCH (22:36)
[2021-10-05] MEDS: MELATONIN 5 MG TABLETS PO SCH (22:37)
[2021-10-05] MEDS: ALBUTEROL SO4 HFA INHALER IH PRN (22:37)
[2021-10-06] MEDS: IBUPROFEN 600 MG TABLET (FP) PO PRN (05:24)
[2021-10-06] MEDS ORDERED: predniSONE 5 MG TABLET (UD) PO ONE (06:00)
[2021-10-06 09:44] VITALS: BP 153/86; PULSE 57; RESP 16; TEMP 97.3
[2021-10-06] MEDS: HYDROCORTISONE 2.5% TOPICAL CREAM 30 GM TUBE RC SCH (11:07)
[2021-10-06] MEDS: PRENATAL VITAMINS W/ FOLIC ACID TABLET (FP) PO SCH (11:07)
[2021-10-06] MEDS: FLUTICASONE/UMECLIDIN/VILANTER(100-62.5-25 TRELEGY ELLIPTA) INAHLER IH SCH (11:07)
[2021-10-06] MEDS: MONTELUKAST NA 10 MG TABLET PO SCH (11:07)
[2021-10-06] MEDS: FLUTICASONE PROP 0.05% 16 GM NASAL SPRAY NS SCH (11:07)
[2021-10-06] MEDS: LISINOPRIL 5 MG TABLET PO SCH (11:07)
== END 2021-10-06 10:30 | disposition home or self-care (01) | DRG 897 ==
LOC: YASAS 10:06 → SUATTDRO 10:06 → Y6N 11:55
PROVIDERS: ADMIT Allergy & Immunology; ATTEND Surgery
PROC: HZ2ZZZZ Detoxification Services for Substance Abuse Treatment (ICD-10-PCS; principal; 2021-10-01)
DX: F11.23 Opioid dependence with withdrawal (principal); F17.210 Nicotine dependence, cigarettes, uncomplicated; F32.9 Major depressive disorder, single episode, unspecified; J44.9 Chronic obstructive pulmonary disease, unspecified; I10 Essential (primary) hypertension; E78.5 Hyperlipidemia, unspecified; E11.9 Type 2 diabetes mellitus without complications; Z86.2 Personal history of diseases of the blood and blood-forming organs and certain disorders involving the immune mechanism; Z86.19 Personal history of other infectious and parasitic diseases; Z91.013 Allergy to seafood
CPT/HCPCS: 36415; 80053; 84520; 85027; 86780; 87811; C9803-CS; J0735; U0003; U0005

== ENCOUNTER 2022-06-26 10:03 | Inpatient (IN) | payer OTHER ==
[2022-06-26 10:21] VITALS: BMI 20.9
[2022-06-26] MEDS ORDERED: LOPERAMIDE HCL 2 MG CAPSULE PO PRN (11:47)
[2022-06-26] MEDS ORDERED: BISMUTH SUBSALICYLATE 262 MG/15 ML BTL PO PRN (11:47)
[2022-06-26] MEDS ORDERED: NALOXONE HCL (KLOXXADO) 8 MG SPRAY NS PRN (11:47)
[2022-06-26] MEDS ORDERED: ONDANSETRON *ODT* 4 MG TABLET SL PRN (11:47)
[2022-06-26] MEDS ORDERED: methaDONE HCL 10 MG TABLET (FOR DETOX USE ONLY) PO ONE (11:47)
[2022-06-26] MEDS ORDERED: NALOXONE HCL 0.4 MG/ML VIAL IM PRN (11:47)
[2022-06-26] MEDS ORDERED: BENZONATATE 200 MG CAPSULE PO PRN (11:47)
[2022-06-26] MEDS ORDERED: NICOTINE 10 MG CARTRIDGE (INHALER) IH PRN (11:47)
[2022-06-26] MEDS ORDERED: DICYCLOMINE HCL 10 MG CAPSULE PO PRN (11:47)
[2022-06-26] MEDS ORDERED: MAG HYDROX/AL HYDROX/SIMETH 30 ML UNIT-DOSE CUP PO PRN (11:47)
[2022-06-26] MEDS ORDERED: IBUPROFEN 400 MG TABLET (FP) PO PRN (11:47)
[2022-06-26] MEDS ORDERED: hydrOXYzine PAMOATE 25 MG CAPSULE (FP) PO PRN (11:47)
[2022-06-26] MEDS ORDERED: POLYETHYLENE GLYCOL (HEALTHYLAX) 3350 17 GM PACKET PO PRN (11:47)
[2022-06-26] MEDS ORDERED: MAGNESIUM HYDROX 2400MG/30ML ORAL SUSPENSION 30 ML CUP PO PRN (11:47)
[2022-06-26] MEDS ORDERED: BENZOCAINE/MENTHOL (CHLORASEPTIC ) LOZENGE MM PRN (11:47)
[2022-06-26] MEDS ORDERED: guaiFENesin 600 MG TABLET.ER (FP) PO PRN (11:47)
[2022-06-26] MEDS ORDERED: PRENATAL VITAMINS W/ FOLIC ACID TABLET (FP) PO ONE (12:15)
[2022-06-26] MEDS ORDERED: methaDONE HCL 10 MG TABLET (FOR DETOX USE ONLY) ONE (12:15)
[2022-06-26] MEDS ORDERED: NICOTINE 7 MG/24 HOURS TOPICAL PATCH TD ONE (12:16)
[2022-06-26] MEDS: NICOTINE 7 MG/24 HOURS TOPICAL PATCH TD SCH (12:22)
[2022-06-26] MEDS: PRENATAL VITAMINS W/ FOLIC ACID TABLET (FP) PO SCH (12:22)
[2022-06-26] MEDS: ALBUTEROL SO4 HFA INHALER IH PRN ×3 (13:10→23:03)
[2022-06-26] MEDS: FLUTICASONE/UMECLIDIN/VILANTER(100-62.5-25 TRELEGY ELLIPTA) INAHLER IH SCH (14:49)
[2022-06-26] MEDS: ACETAMINOPHEN 325 MG TABLET (FP) PO PRN ×2 (15:40→23:05)
[2022-06-26] MEDS ORDERED: ALBUTEROL SO4 0.083% IH SOL 2.5 MG/3 ML VIAL.NEB. NEB PRN (15:40)
[2022-06-26] MEDS: ALBUTEROL SO4 0.083% IH SOL 2.5 MG/3 ML VIAL.NEB. NEB PRN (16:12)
[2022-06-26] MEDS: THIAMINE HCL 100 MG TABLET (FP) PO SCH (23:04)
[2022-06-26] MEDS: ATORVASTATIN CA 10 MG TABLET (FP) PO SCH (23:04)
[2022-06-26] MEDS: MELATONIN 5 MG TABLETS PO SCH (23:04)
[2022-06-26] MEDS: cloNIDine HCL 0.1 MG TABLET PO PRN (23:05)
[2022-06-27] MEDS: ALBUTEROL SO4 HFA INHALER IH PRN ×2 (06:34→10:08)
[2022-06-27] MEDS: IBUPROFEN 600 MG TABLET (FP) PO PRN ×2 (06:43→21:11)
[2022-06-27] MEDS: METHOCARBAMOL 500 MG TABLET PO PRN (06:43)
[2022-06-27] MEDS: cloNIDine HCL 0.1 MG TABLET PO PRN ×2 (06:50→12:55)
[2022-06-27] MEDS ORDERED: PATIENT'S OWN MEDICATION (NON-FORMULARY) (Prednisone [Prednisone 50 Mg Tablets] 50 MG Tabl PO SCH (10:00)
[2022-06-27] MEDS: LISINOPRIL 5 MG TABLET PO SCH (10:08)
[2022-06-27] MEDS: MONTELUKAST NA 10 MG TABLET PO SCH (10:08)
[2022-06-27] MEDS: FLUTICASONE/UMECLIDIN/VILANTER(100-62.5-25 TRELEGY ELLIPTA) INAHLER IH SCH (10:08)
[2022-06-27] MEDS: predniSONE 40 MG, predniSONE 10 MG PO SCH (10:10)
[2022-06-27] MEDS: PRENATAL VITAMINS W/ FOLIC ACID TABLET (FP) PO SCH (10:10)
[2022-06-27] MEDS: NICOTINE 7 MG/24 HOURS TOPICAL PATCH TD SCH (10:11)
[2022-06-27] MEDS: ALBUTEROL SO4 0.083% IH SOL 2.5 MG/3 ML VIAL.NEB. NEB PRN (12:14)
[2022-06-27] MEDS ORDERED: P-EPHED 60MG/TRIPROLIDI 2.5MG TABLET PO PRN (20:32)
[2022-06-27] MEDS: ATORVASTATIN CA 10 MG TABLET (FP) PO SCH (22:40)
[2022-06-27] MEDS: THIAMINE HCL 100 MG TABLET (FP) PO SCH (22:40)
[2022-06-27] MEDS: MELATONIN 5 MG TABLETS PO SCH (22:40)
[2022-06-28] MEDS: METHOCARBAMOL 500 MG TABLET PO PRN (01:33)
[2022-06-28] MEDS: cloNIDine HCL 0.1 MG TABLET PO PRN ×3 (01:33→22:09)
[2022-06-28] MEDS: ACETAMINOPHEN 325 MG TABLET (FP) PO PRN ×2 (07:02→19:43)
[2022-06-28] MEDS: ALBUTEROL SO4 HFA INHALER IH PRN ×3 (07:03→19:39)
[2022-06-28] MEDS: predniSONE 40 MG, predniSONE 10 MG PO SCH (09:44)
[2022-06-28] MEDS: LISINOPRIL 5 MG TABLET PO SCH (09:45)
[2022-06-28] MEDS: NICOTINE 7 MG/24 HOURS TOPICAL PATCH TD SCH (09:45)
[2022-06-28] MEDS: PRENATAL VITAMINS W/ FOLIC ACID TABLET (FP) PO SCH (09:46)
[2022-06-28] MEDS: FLUTICASONE/UMECLIDIN/VILANTER(100-62.5-25 TRELEGY ELLIPTA) INAHLER IH SCH (09:46)
[2022-06-28] MEDS: MONTELUKAST NA 10 MG TABLET PO SCH (09:47)
[2022-06-28] MEDS ORDERED: methaDONE HCL 10 MG TABLET (FOR DETOX USE ONLY) PO ONE (10:00)
[2022-06-28] MEDS: ALBUTEROL SO4 0.083% IH SOL 2.5 MG/3 ML VIAL.NEB. NEB PRN (15:15)
[2022-06-28] MEDS: IBUPROFEN 600 MG TABLET (FP) PO PRN (16:34)
[2022-06-28] MEDS: THIAMINE HCL 100 MG TABLET (FP) PO SCH (22:08)
[2022-06-28] MEDS: MELATONIN 5 MG TABLETS PO SCH (22:08)
[2022-06-28] MEDS: ATORVASTATIN CA 10 MG TABLET (FP) PO SCH (22:08)
[2022-06-29] MEDS: IBUPROFEN 600 MG TABLET (FP) PO PRN (03:48)
[2022-06-29] MEDS: METHOCARBAMOL 500 MG TABLET PO PRN (08:50)
[2022-06-29] MEDS: ACETAMINOPHEN 325 MG TABLET (FP) PO PRN (08:50)
[2022-06-29] MEDS: LISINOPRIL 5 MG TABLET PO SCH (09:10)
[2022-06-29] MEDS: PRENATAL VITAMINS W/ FOLIC ACID TABLET (FP) PO SCH (09:10)
[2022-06-29] MEDS: MONTELUKAST NA 10 MG TABLET PO SCH (09:10)
[2022-06-29] MEDS: predniSONE 40 MG, predniSONE 10 MG PO SCH (09:10)
[2022-06-29] MEDS: FLUTICASONE/UMECLIDIN/VILANTER(100-62.5-25 TRELEGY ELLIPTA) INAHLER IH SCH (09:12)
[2022-06-29] MEDS: ALBUTEROL SO4 HFA INHALER IH PRN (09:15)
[2022-06-29] MEDS: NICOTINE 7 MG/24 HOURS TOPICAL PATCH TD SCH (09:20)
[2022-06-29 10:03] VITALS: BP 155/78; PULSE 63; RESP 18; TEMP 97.3
[2022-06-30] MEDS ORDERED: methaDONE HCL 10 MG TABLET (FOR DETOX USE ONLY) PO ONE (10:00)
== END 2022-06-29 13:09 | disposition left against medical advice (07) | DRG 894 ==
LOC: YASAS 10:03 → Y3N 12:11
PROVIDERS: ADMIT Allergy & Immunology; ATTEND Surgery
PROC: HZ2ZZZZ Detoxification Services for Substance Abuse Treatment (ICD-10-PCS; principal; 2022-06-26)
DX: F11.23 Opioid dependence with withdrawal (principal); J44.1 Chronic obstructive pulmonary disease with (acute) exacerbation; F17.210 Nicotine dependence, cigarettes, uncomplicated; E11.9 Type 2 diabetes mellitus without complications; M17.11 Unilateral primary osteoarthritis, right knee; M54.50 Low back pain, unspecified; G89.29 Other chronic pain; Z99.89 Dependence on other enabling machines and devices
CPT/HCPCS: 71046-TC-FY; 82962; 87811; 94640; C9803-CS; U0003; U0005

== ENCOUNTER 2022-06-26 18:26 | Emergency (ER) | payer OTHER ==
[2022-06-26 18:49] VITALS: BP 115/53; PULSE 78; RESP 20; TEMP 98.4; BMI 21.4
[2022-06-26] MEDS ORDERED: methylPREDNISolone NA SUCC 125 MG/2 ML VIAL IVPUSH ONE (19:13)
[2022-06-26] MEDS ORDERED: predniSONE 20 MG TABLET (UD) PO ONE (19:26)
[2022-06-26] MEDS: ALBUTEROL SO4 2.5/IPRATROPIUM 0.5 INH SOL 3 ML VIAL.NEB. NEB SCH ×3 (19:30→20:17)
[2022-06-26] MEDS ORDERED: ALBUTEROL SO4 2.5/IPRATROPIUM 0.5 INH SOL 3 ML VIAL.NEB. NEB ONE (19:40)
[2022-06-26] MEDS ORDERED: predniSONE 20 MG TABLET (UD) ONE (19:55)
[2022-06-26] MEDS ORDERED: ALBUTEROL SO4 0.083% IH SOL 2.5 MG/3 ML VIAL.NEB. NEB ONE ×2 (20:59→21:08)
== END 2022-06-26 22:18 | disposition home or self-care (01) ==
LOC: JER 18:26
PROC: 3E0F7GC Introduction of Other Therapeutic Substance into Respiratory Tract, Via Natural or Artificial Opening (ICD-10-PCS; principal; 2022-06-26)
PROC: 3E0F7GC Introduction of Other Therapeutic Substance into Respiratory Tract, Via Natural or Artificial Opening (ICD-10-PCS; 2022-06-26)
DX: J44.9 Chronic obstructive pulmonary disease, unspecified (principal); R06.02 Shortness of breath
CPT/HCPCS: 0241U-QW; 99284-25

== ENCOUNTER 2022-08-28 10:26 | Inpatient (IN) | payer OTHER ==
[2022-08-28] MEDS ORDERED: POLYETHYLENE GLYCOL (HEALTHYLAX) 3350 17 GM PACKET PO PRN (11:27)
[2022-08-28] MEDS ORDERED: BENZONATATE 200 MG CAPSULE PO PRN (11:27)
[2022-08-28] MEDS ORDERED: NICOTINE 10 MG CARTRIDGE (INHALER) IH PRN (11:27)
[2022-08-28] MEDS ORDERED: hydrOXYzine PAMOATE 25 MG CAPSULE (FP) PO PRN (11:27)
[2022-08-28] MEDS ORDERED: cloNIDine HCL 0.1 MG TABLET PO PRN (11:27)
[2022-08-28] MEDS ORDERED: LOPERAMIDE HCL 2 MG CAPSULE PO PRN (11:27)
[2022-08-28] MEDS ORDERED: MAGNESIUM HYDROX 2400MG/30ML ORAL SUSPENSION 30 ML CUP PO PRN (11:27)
[2022-08-28] MEDS ORDERED: BENZOCAINE/MENTHOL (CHLORASEPTIC ) LOZENGE MM PRN (11:27)
[2022-08-28] MEDS ORDERED: NALOXONE HCL 0.4 MG/ML VIAL IM PRN (11:27)
[2022-08-28] MEDS ORDERED: MAG HYDROX/AL HYDROX/SIMETH 30 ML UNIT-DOSE CUP PO PRN (11:27)
[2022-08-28] MEDS ORDERED: guaiFENesin 600 MG TABLET.ER (FP) PO PRN (11:27)
[2022-08-28] MEDS ORDERED: ONDANSETRON *ODT* 4 MG TABLET SL PRN (11:27)
[2022-08-28] MEDS ORDERED: clonazePAM 0.5 MG ODT TABLETS SL PRN (11:27)
[2022-08-28] MEDS ORDERED: IBUPROFEN 400 MG TABLET (FP) PO PRN (11:27)
[2022-08-28] MEDS ORDERED: BISMUTH SUBSALICYLATE 262 MG/15 ML BTL PO PRN (11:27)
[2022-08-28] MEDS ORDERED: methaDONE HCL 10 MG TABLET (FOR DETOX USE ONLY) PO ONE (11:27)
[2022-08-28] MEDS ORDERED: METHOCARBAMOL 500 MG TABLET PO PRN (11:27)
[2022-08-28] MEDS ORDERED: NALOXONE HCL (KLOXXADO) 8 MG SPRAY NS PRN (11:27)
[2022-08-28] MEDS ORDERED: DICYCLOMINE HCL 10 MG CAPSULE PO PRN (11:27)
[2022-08-28] MEDS: NICOTINE 7 MG/24 HOURS TOPICAL PATCH TD SCH (12:30)
[2022-08-28] MEDS: PRENATAL VITAMINS W/ FOLIC ACID TABLET (FP) PO SCH (12:30)
[2022-08-28] MEDS ORDERED: methaDONE HCL 10 MG TABLET (FOR DETOX USE ONLY) ONE (13:22)
[2022-08-28] MEDS ORDERED: NICOTINE 7 MG/24 HOURS TOPICAL PATCH TD ONE (13:22)
[2022-08-28] MEDS ORDERED: PRENATAL VITAMINS W/ FOLIC ACID TABLET (FP) PO ONE (13:22)
[2022-08-28] MEDS: IBUPROFEN 600 MG TABLET (FP) PO PRN ×2 (13:35→19:23)
[2022-08-28] MEDS: ALBUTEROL SO4 HFA INHALER IH PRN ×2 (14:02→19:24)
[2022-08-28 14:06] LABS: HEMATOCRIT 36.8 % (35.4-49); HEMOGLOBIN 11.8 GM/dL (11.7-16.9); MCH 29.8 pg (25.7-33.7); MCHC 32.2 g/dl (32.0-35.9); MEAN CELL VOLUME 92.8 fl (80-96); MEAN PLT VOLUME 8.5 fl (7.5-11.1); PLATELET COUNT 315 10^3/uL (134-434); RBC 3.97 M/mm3 (4.00-5.60); RDW 14.3 % (11.9-15.9); WHITE BLOOD COUNT 11.5 K/mm3 (4.0-10.0)
[2022-08-28 14:21] LABS: POTASSIUM 4.6 mmol/L (3.5-5.1)
[2022-08-28 14:23] LABS: CALCIUM 9.3 mg/dL (8.5-10.1)
[2022-08-28 14:24] LABS: ALBUMIN 3.1 g/dl (3.4-5.0); BLOOD UREA NITROGEN 18.5 mg/dL (7-18)
[2022-08-28 14:27] LABS: CREATININE 0.7 mg/dL (0.55-1.3)
[2022-08-28 14:28] LABS: BILIRUBIN,TOTAL 0.4 mg/dL (0.2-1)
[2022-08-28] MEDS: AMOXICILLIN 500 MG CAPSULE (FP) PO SCH ×2 (14:53→22:26)
[2022-08-28] MEDS: ATORVASTATIN CA 10 MG TABLET (FP) PO SCH (22:26)
[2022-08-28] MEDS: THIAMINE HCL 100 MG TABLET (FP) PO SCH (22:26)
[2022-08-28] MEDS: MELATONIN 5 MG TABLETS PO SCH (22:27)
[2022-08-29] MEDS: ALBUTEROL SO4 0.083% IH SOL 2.5 MG/3 ML VIAL.NEB. NEB PRN ×2 (02:05→19:06)
[2022-08-29] MEDS: IBUPROFEN 600 MG TABLET (FP) PO PRN ×2 (03:55→17:00)
[2022-08-29] MEDS: AMOXICILLIN 500 MG CAPSULE (FP) PO SCH ×3 (05:15→22:57)
[2022-08-29] MEDS: glipiZIDE-XL 5 MG TAB.ER.24 PO SCH ×2 (07:53→09:12)
[2022-08-29] MEDS: ACETAMINOPHEN 325 MG TABLET (FP) PO PRN ×2 (07:54→22:50)
[2022-08-29] MEDS ORDERED: PATIENT'S OWN MEDICATION (NON-FORMULARY) (Prednisone [Prednisone 50 Mg Tablets] 50 MG Tabl PO SCH (10:00)
[2022-08-29] MEDS: ROFLUMILAST 500 MCG PO SCH (10:40)
[2022-08-29] MEDS: PRENATAL VITAMINS W/ FOLIC ACID TABLET (FP) PO SCH (10:40)
[2022-08-29] MEDS: NICOTINE 7 MG/24 HOURS TOPICAL PATCH TD SCH (10:41)
[2022-08-29] MEDS: predniSONE 40 MG, predniSONE 10 MG PO SCH (10:41)
[2022-08-29] MEDS: MONTELUKAST NA 10 MG TABLET PO SCH (10:41)
[2022-08-29] MEDS: LISINOPRIL 5 MG TABLET PO SCH (10:41)
[2022-08-29] MEDS: FLUTICASONE/UMECLIDIN/VILANTER(100-62.5-25 TRELEGY ELLIPTA) INAHLER IH SCH (10:41)
[2022-08-29] MEDS: TAMSULOSIN HCL 0.4 MG CAP PO SCH (10:41)
[2022-08-29] MEDS ORDERED: PNEUMOC 20-VAL CONJ-DIP CRM/PF 0.5 ML SYRINGE IM ONE (12:00)
[2022-08-29] MEDS: ALBUTEROL SO4 HFA INHALER IH PRN (16:59)
[2022-08-29] MEDS: ATORVASTATIN CA 10 MG TABLET (FP) PO SCH (22:58)
[2022-08-29] MEDS: THIAMINE HCL 100 MG TABLET (FP) PO SCH (22:58)
[2022-08-29] MEDS: MELATONIN 5 MG TABLETS PO SCH (22:58)
[2022-08-30] MEDS: glipiZIDE-XL 5 MG TAB.ER.24 PO SCH (06:17)
[2022-08-30] MEDS: AMOXICILLIN 500 MG CAPSULE (FP) PO SCH (06:18)
[2022-08-30] MEDS: IBUPROFEN 600 MG TABLET (FP) PO PRN (07:04)
[2022-08-30] MEDS ORDERED: methaDONE HCL 10 MG TABLET (FOR DETOX USE ONLY) PO ONE (10:00)
[2022-08-30] MEDS: TAMSULOSIN HCL 0.4 MG CAP PO SCH (10:51)
[2022-08-30] MEDS: FLUTICASONE/UMECLIDIN/VILANTER(100-62.5-25 TRELEGY ELLIPTA) INAHLER IH SCH (10:51)
[2022-08-30] MEDS: LISINOPRIL 5 MG TABLET PO SCH (10:51)
[2022-08-30] MEDS: MONTELUKAST NA 10 MG TABLET PO SCH (10:51)
[2022-08-30] MEDS: PRENATAL VITAMINS W/ FOLIC ACID TABLET (FP) PO SCH (10:51)
[2022-08-30] MEDS: ROFLUMILAST 500 MCG PO SCH (10:52)
[2022-08-30] MEDS: predniSONE 40 MG, predniSONE 10 MG PO SCH (10:52)
[2022-08-30] MEDS: NICOTINE 7 MG/24 HOURS TOPICAL PATCH TD SCH (10:52)
[2022-08-30 13:21] VITALS: BP 137/58; PULSE 84; RESP 18; TEMP 97.1
[2022-09-01] MEDS ORDERED: methaDONE HCL 10 MG TABLET (FOR DETOX USE ONLY) PO ONE (10:00)
== END 2022-08-30 13:45 | disposition left against medical advice (07) | DRG 894 ==
LOC: YASAS 10:26 → Y3N 12:33
PROVIDERS: ADMIT Allergy & Immunology; ATTEND Surgery
PROC: HZ2ZZZZ Detoxification Services for Substance Abuse Treatment (ICD-10-PCS; principal; 2022-08-28)
DX: F11.23 Opioid dependence with withdrawal (principal); F17.210 Nicotine dependence, cigarettes, uncomplicated; F41.8 Other specified anxiety disorders; F32.9 Major depressive disorder, single episode, unspecified; E78.5 Hyperlipidemia, unspecified; I10 Essential (primary) hypertension; J44.9 Chronic obstructive pulmonary disease, unspecified; E11.9 Type 2 diabetes mellitus without complications; Z79.84 Long term (current) use of oral hypoglycemic drugs; M54.50 Low back pain, unspecified; G89.29 Other chronic pain; Z20.822 Contact with and (suspected) exposure to COVID-19
CPT/HCPCS: 36415; 80053; 82962; 85027; 86780; 87635; 94640

== ENCOUNTER 2023-01-26 12:24 | Inpatient (IN) | payer OTHER ==
[2023-01-26 13:11] VITALS: BMI 19.5
[2023-01-26] MEDS ORDERED: NALOXONE HCL 0.4 MG/ML VIAL IM PRN (16:15)
[2023-01-26] MEDS ORDERED: LOPERAMIDE HCL 2 MG CAPSULE PO PRN (16:15)
[2023-01-26] MEDS ORDERED: BENZOCAINE/MENTHOL (CHLORASEPTIC ) LOZENGE MM PRN (16:15)
[2023-01-26] MEDS ORDERED: NALOXONE HCL (KLOXXADO) 8 MG SPRAY NS PRN (16:15)
[2023-01-26] MEDS ORDERED: BACLOFEN 10 MG TABLET (FP) PO PRN (16:15)
[2023-01-26] MEDS ORDERED: DICYCLOMINE HCL 10 MG CAPSULE PO PRN (16:15)
[2023-01-26] MEDS ORDERED: MAG HYDROX/AL HYDROX/SIMETH 30 ML UNIT-DOSE CUP PO PRN (16:15)
[2023-01-26] MEDS ORDERED: BISMUTH SUBSALICYLATE 524 MG/30 ML PO PRN (16:15)
[2023-01-26] MEDS ORDERED: BENZONATATE 200 MG CAPSULE PO PRN (16:15)
[2023-01-26] MEDS ORDERED: hydrOXYzine PAMOATE 25 MG CAPSULE (FP) PO PRN (16:15)
[2023-01-26] MEDS ORDERED: IBUPROFEN 600 MG TABLET (FP) PO PRN (16:15)
[2023-01-26] MEDS ORDERED: POLYETHYLENE GLYCOL (HEALTHYLAX) 3350 17 GM PACKET PO PRN (16:15)
[2023-01-26] MEDS ORDERED: MAGNESIUM HYDROX 2400MG/30ML ORAL SUSPENSION 30 ML CUP PO PRN (16:15)
[2023-01-26] MEDS ORDERED: ACETAMINOPHEN 325 MG TABLET (FP) PO PRN (16:15)
[2023-01-26] MEDS ORDERED: ONDANSETRON *ODT* 4 MG TABLET SL PRN (16:15)
[2023-01-26] MEDS ORDERED: IBUPROFEN 400 MG TABLET (FP) PO PRN (16:15)
[2023-01-26] MEDS: ALBUTEROL SO4 2.5/IPRATROPIUM 0.5 INH SOL 3 ML VIAL.NEB. NEB PRN (18:12)
[2023-01-26] MEDS ORDERED: methaDONE HCL 10 MG TABLET (FOR DETOX USE ONLY) PO ONE (18:17)
[2023-01-26] MEDS: cloNIDine HCL 0.1 MG TABLET PO PRN (18:38)
[2023-01-26] MEDS: guaiFENesin 600 MG TABLET.ER (FP) PO PRN (18:41)
[2023-01-26] MEDS ORDERED: MONTELUKAST NA 10 MG TABLET PO SCH (22:00)
[2023-01-26] MEDS ORDERED: ATORVASTATIN CA 10 MG TABLET (FP) PO SCH (22:00)
[2023-01-26] MEDS ORDERED: PATIENT'S OWN MEDICATION (NON-FORMULARY) (Simvastatin 10 MG Tablet) PO SCH (22:00)
[2023-01-26] MEDS ORDERED: MELATONIN 5 MG TABLETS PO SCH (22:00)
[2023-01-26] MEDS ORDERED: THIAMINE HCL 100 MG TABLET (FP) PO SCH (22:00)
[2023-01-27] MEDS: ALBUTEROL SO4 2.5/IPRATROPIUM 0.5 INH SOL 3 ML VIAL.NEB. NEB PRN (04:06)
[2023-01-27] MEDS: guaiFENesin 600 MG TABLET.ER (FP) PO PRN (05:49)
[2023-01-27] MEDS: cloNIDine HCL 0.1 MG TABLET PO PRN (05:49)
[2023-01-27] MEDS: ALBUTEROL SO4 HFA INHALER IH PRN ×4 (06:40→18:50)
[2023-01-27] MEDS ORDERED: glipiZIDE-XL 5 MG TAB.ER.24 PO SCH (07:00)
[2023-01-27] MEDS ORDERED: TAMSULOSIN HCL 0.4 MG CAP PO SCH (10:00)
[2023-01-27] MEDS ORDERED: FLUTICASONE/UMECLIDIN/VILANTER(100-62.5-25 TRELEGY ELLIPTA) INAHLER IH SCH (10:00)
[2023-01-27] MEDS ORDERED: LISINOPRIL 5 MG TABLET PO SCH (10:00)
[2023-01-27] MEDS ORDERED: ROFLUMILAST 500 MCG TABLET PO SCH (10:00)
[2023-01-27] MEDS ORDERED: methaDONE HCL 10 MG TABLET (FOR DETOX USE ONLY) PO ONE ×2 (10:00→10:45)
[2023-01-27] MEDS ORDERED: ASPIRIN 81 MG CHEWABLE TABLETS PO SCH (10:00)
[2023-01-27] MEDS ORDERED: PRENATAL VITAMINS W/ FOLIC ACID TABLET (FP) PO SCH (10:00)
[2023-01-27] MEDS ORDERED: methaDONE HCL 10 MG TABLET PO ONE (10:45)
[2023-01-27 10:59] LABS: HEMATOCRIT 36.3 % (35.4-49); HEMOGLOBIN 11.7 GM/dL (11.7-16.9); MCH 29.5 pg (25.7-33.7); MCHC 32.3 g/dl (32.0-35.9); MEAN CELL VOLUME 91.5 fl (80-96); MEAN PLT VOLUME 9.1 fl (7.5-11.1); PLATELET COUNT 204 10^3/uL (134-434); RBC 3.97 M/mm3 (4.00-5.60); RDW 13.8 % (11.9-15.9)
[2023-01-27 11:10] LABS: CHLORIDE 103 mmol/L (98-107); POTASSIUM 5.3 mmol/L (3.5-5.1); SODIUM 137 mmol/L (136-145)
[2023-01-27 11:16] LABS: CALCIUM 8.9 mg/dL (8.5-10.1)
[2023-01-27 11:17] LABS: ANION GAP 4 mmol/L (4-13); BLOOD UREA NITROGEN 18.8 mg/dL (7-18); CO2 30 mmol/L (21-32); CREATININE 0.7 mg/dL (0.55-1.3); GLUCOSE,RANDOM 127 mg/dL (74-106); SGOT/AST 25 U/L (15-37)
[2023-01-27 11:19] LABS: BILIRUBIN,TOTAL 0.6 mg/dL (0.2-1); TOT PROT 6.2 g/dl (6.4-8.2)
[2023-01-27 11:21] LABS: ALK PHOS 64 U/L (45-117)
[2023-01-27 11:24] LABS: SGPT/ALT 20 U/L (13-61)
[2023-01-27 13:13] VITALS: RESP 16
[2023-01-27] MEDS ORDERED: LORATADINE 10 MG TABLET PO PRN (14:31)
[2023-01-27] MEDS ORDERED: PATIENT'S OWN MEDICATION (NON-FORMULARY) (Linagliptin [Tradjenta] 5 MG Tablet) PO SCH (14:45)
[2023-01-27] MEDS ORDERED: sitaGLIPtin PHOSPHATE 50 MG TABLET PO SCH (16:00)
[2023-01-27 17:33] VITALS: BP 131/67; PULSE 87; TEMP 97.7
[2023-01-28] MEDS ORDERED: sitaGLIPtin PHOSPHATE 50 MG TABLET PO SCH (07:00)
[2023-01-28] MEDS ORDERED: methaDONE HCL 10 MG TABLET (FOR DETOX USE ONLY) PO ONE ×2 (10:00)
[2023-01-29] MEDS ORDERED: methaDONE HCL 10 MG TABLET (FOR DETOX USE ONLY) PO ONE (10:00)
[2023-01-30] MEDS ORDERED: methaDONE HCL 10 MG TABLET (FOR DETOX USE ONLY) PO ONE ×2 (06:00)
== END 2023-01-27 18:53 | disposition left against medical advice (07) | DRG 894 ==
LOC: YASAS 12:24 → UNDOADMIN 16:25 → Y3N 16:25 → UNDODISIN 01-27 18:53
PROVIDERS: ADMIT Allergy & Immunology; ATTEND Surgery
PROC: HZ2ZZZZ Detoxification Services for Substance Abuse Treatment (ICD-10-PCS; principal; 2023-01-26)
DX: F11.23 Opioid dependence with withdrawal (principal); E72.20 Disorder of urea cycle metabolism, unspecified; F17.210 Nicotine dependence, cigarettes, uncomplicated; E78.5 Hyperlipidemia, unspecified; I10 Essential (primary) hypertension; J44.9 Chronic obstructive pulmonary disease, unspecified; E11.9 Type 2 diabetes mellitus without complications; Z79.84 Long term (current) use of oral hypoglycemic drugs; N40.0 Benign prostatic hyperplasia without lower urinary tract symptoms; R74.01 Elevation of levels of liver transaminase levels; Z99.81 Dependence on supplemental oxygen
CPT/HCPCS: 36415; 71046-TC-FY; 80053; 80307; 82962; 85027; 86780; 87635; 93005; 93010; 94640; J0475

== ENCOUNTER 2023-08-23 14:14 | Inpatient (IN) | payer OTHER ==
[2023-08-23 15:34] VITALS: BMI 18.8
[2023-08-23] MEDS ORDERED: ACETAMINOPHEN 325 MG TABLET (FP) PO PRN (18:25)
[2023-08-23] MEDS ORDERED: BENZONATATE 200 MG CAPSULE PO PRN (18:25)
[2023-08-23] MEDS ORDERED: DICYCLOMINE HCL 10 MG CAPSULE PO PRN (18:25)
[2023-08-23] MEDS ORDERED: guaiFENesin 600 MG TABLET.ER (FP) PO PRN (18:25)
[2023-08-23] MEDS ORDERED: LOPERAMIDE HCL 2 MG CAPSULE PO PRN (18:25)
[2023-08-23] MEDS ORDERED: ONDANSETRON *ODT* 4 MG TABLET SL PRN (18:25)
[2023-08-23] MEDS ORDERED: LORATADINE 10 MG TABLET PO PRN (18:27)
[2023-08-23] MEDS: ALBUTEROL SO4 HFA INHALER IH PRN (19:24)
[2023-08-23] MEDS ORDERED: PATIENT'S OWN MEDICATION (NON-FORMULARY) (Simvastatin 10 MG Tablet) PO SCH (22:00)
[2023-08-23] MEDS: ATORVASTATIN CA 10 MG TABLET (FP) PO SCH (22:20)
[2023-08-23] MEDS: hydrOXYzine PAMOATE 25 MG CAPSULE (FP) PO PRN (22:25)
[2023-08-24] MEDS: METHOCARBAMOL 500 MG TABLET PO PRN (04:21)
[2023-08-24] MEDS: methaDONE 40 MG, methaDONE 20 MG PO ONE (09:53)
[2023-08-24] MEDS: LISINOPRIL 5 MG TABLET PO SCH (09:54)
[2023-08-24] MEDS: ASPIRIN 81 MG CHEWABLE TABLETS PO SCH (09:54)
[2023-08-24] MEDS: TAMSULOSIN HCL 0.4 MG CAP PO SCH (09:54)
[2023-08-24] MEDS: PRENATAL VITAMINS W/ FOLIC ACID TABLET (FP) PO SCH (09:54)
[2023-08-24] MEDS: MONTELUKAST NA 10 MG TABLET PO SCH (09:54)
[2023-08-24] MEDS: THIAMINE 100 MG TABLET PO SCH (09:54)
[2023-08-24] MEDS ORDERED: PATIENT'S OWN MEDICATION (NON-FORMULARY) (Linagliptin [Tradjenta] 5 MG Tablet) PO SCH (10:00)
[2023-08-24] MEDS: glipiZIDE-XL 5 MG TAB.ER.24 PO SCH (10:51)
[2023-08-24 11:22] LABS: HEMATOCRIT 36.7 % (35.4-49); HEMOGLOBIN 12.2 GM/dL (11.7-16.9); MCH 29.2 pg (25.7-33.7); MCHC 33.1 g/dl (32.0-35.9); MEAN PLT VOLUME 8.6 fl (7.5-11.1); PLATELET COUNT 211 10^3/uL (134-434); RBC 4.17 M/mm3 (4.00-5.60); RDW 17.6 % (11.9-15.9); WHITE BLOOD COUNT 7.9 K/mm3 (4.0-10.0)
[2023-08-24 11:24] LABS: POTASSIUM 4.2 mmol/L (3.5-5.1)
[2023-08-24 11:31] LABS: ALBUMIN 2.9 g/dl (3.4-5.0); BLOOD UREA NITROGEN 24.8 mg/dL (7-18); CALCIUM 8.7 mg/dL (8.5-10.1)
[2023-08-24 11:35] LABS: CREATININE 0.8 mg/dL (0.55-1.3)
[2023-08-24 11:36] LABS: BILIRUBIN,TOTAL 0.4 mg/dL (0.2-1); TOT PROT 6.5 g/dl (6.4-8.2)
[2023-08-24] MEDS: FLUTICASONE/UMECLIDIN/VILANTER(100-62.5-25 TRELEGY ELLIPTA) INAHLER IH SCH (11:42)
[2023-08-24] MEDS: ROFLUMILAST 500 MCG TABLET PO SCH (11:42)
[2023-08-24] MEDS: IBUPROFEN 400 MG TABLET (FP) PO PRN (13:35)
[2023-08-24 17:01] VITALS: BP 128/62; PULSE 74; RESP 16; TEMP 98.4
[2023-08-25] MEDS ORDERED: AZITHROMYCIN 250 MG TABLET PO SCH (10:00)
== END 2023-08-24 18:57 | disposition home or self-care (01) | DRG 897 ==
LOC: YASAS 14:14 → Y3N 18:54
PROVIDERS: ADMIT Allergy & Immunology; ATTEND Surgery
PROC: HZ2ZZZZ Detoxification Services for Substance Abuse Treatment (ICD-10-PCS; principal; 2023-08-23)
DX: F11.23 Opioid dependence with withdrawal (principal); F19.282 Other psychoactive substance dependence with psychoactive substance-induced sleep disorder; F10.230 Alcohol dependence with withdrawal, uncomplicated; F17.210 Nicotine dependence, cigarettes, uncomplicated; F41.8 Other specified anxiety disorders; K44.9 Diaphragmatic hernia without obstruction or gangrene; E11.9 Type 2 diabetes mellitus without complications; Z79.84 Long term (current) use of oral hypoglycemic drugs; Z99.89 Dependence on other enabling machines and devices
CPT/HCPCS: 36415; 80053; 80305; 82962; 85027; 93005; 93010

== ENCOUNTER 2024-04-03 11:10 | Inpatient (IN) | payer OTHER ==
[2024-04-03 11:49] VITALS: BMI 16.2
[2024-04-03] MEDS ORDERED: cloNIDine HCL 0.1 MG TABLET PO PRN (12:21)
[2024-04-03] MEDS ORDERED: NICOTINE POLACRILEX 2 MG LOZENGE BC PRN (12:23)
[2024-04-03] MEDS ORDERED: NICOTINE POLACRILEX 2 MG GUM BUC PRN (12:23)
[2024-04-03] MEDS ORDERED: BENZONATATE 200 MG CAPSULE PO PRN (12:23)
[2024-04-03] MEDS ORDERED: MAG HYDROX/AL HYDROX/SIMETH 30 ML UNIT-DOSE CUP PO PRN (12:23)
[2024-04-03] MEDS ORDERED: BENZOCAINE/MENTHOL (CHLORASEPTIC ) LOZENGE MM PRN (12:23)
[2024-04-03] MEDS ORDERED: LOPERAMIDE HCL 2 MG CAPSULE PO PRN (12:23)
[2024-04-03] MEDS ORDERED: MAGNESIUM HYDROX 2400MG/30ML ORAL SUSPENSION 30 ML CUP PO PRN (12:23)
[2024-04-03] MEDS ORDERED: POLYETHYLENE GLYCOL (HEALTHYLAX) 3350 17 GM PACKET PO PRN (12:23)
[2024-04-03] MEDS ORDERED: guaiFENesin 600 MG TABLET.ER (FP) PO PRN (12:23)
[2024-04-03] MEDS ORDERED: P-EPHED 60MG/TRIPROLIDI 2.5MG TABLET PO PRN (12:23)
[2024-04-03] MEDS ORDERED: IBUPROFEN 400 MG TABLET (FP) PO PRN (12:23)
[2024-04-03] MEDS ORDERED: NALOXONE (NARCAN) HCL 4 MG/0.1 ML SPRAY NS PRN (12:23)
[2024-04-03] MEDS ORDERED: BISMUTH SUBSALICYLATE 524 MG/30 ML PO PRN (12:23)
[2024-04-03] MEDS ORDERED: methaDONE HCL 10 MG TABLET (FOR DETOX USE ONLY) ONE ×2 (12:44→12:46)
[2024-04-03] MEDS ORDERED: ONDANSETRON *ODT* 4 MG TABLET ONE (12:44)
[2024-04-03] MEDS: ONDANSETRON *ODT* 4 MG TABLET SL PRN (12:49)
[2024-04-03] MEDS: methaDONE HCL 10 MG TABLET (FOR DETOX USE ONLY) PO ONE (13:00)
[2024-04-03] MEDS ORDERED: TRIMETHOBENZAMIDE HCL 200MG/2ML INJ IM ONE (13:22)
[2024-04-03] MEDS: TRIMETHOBENZAMIDE HCL 200MG/2ML INJ IM ONE (13:37)
[2024-04-03] MEDS ORDERED: IBUPROFEN 400 MG TABLET (FP) PO ONE (14:20)
[2024-04-03] MEDS: ASPIRIN 81 MG CHEWABLE TABLETS PO SCH (17:54)
[2024-04-03] MEDS: ACETAMINOPHEN 325 MG TABLET (FP) PO PRN (21:15)
[2024-04-03] MEDS ORDERED: PATIENT'S OWN MEDICATION (NON-FORMULARY) (Simvastatin 10 MG Tablet) PO SCH (22:00)
[2024-04-03] MEDS: ATORVASTATIN CA 10 MG TABLET (FP) PO SCH (22:45)
[2024-04-03] MEDS: RIFAMPIN 300 MG CAPSULE PO SCH (22:45)
[2024-04-03] MEDS: MONTELUKAST NA 10 MG TABLET PO SCH (22:45)
[2024-04-03] MEDS: ETHAMBUTOL HCL 400 MG TABLET PO SCH (22:46)
[2024-04-03] MEDS: THIAMINE 100 MG TABLET PO SCH (22:46)
[2024-04-03] MEDS: MELATONIN 5 MG TABLETS PO SCH (22:46)
[2024-04-04] MEDS: LORazepam 1 MG TABLET PO ONE (01:29)
[2024-04-04] MEDS: ALBUTEROL SO4 HFA INHALER IH PRN (01:37)
[2024-04-04] MEDS: IBUPROFEN 600 MG TABLET (FP) PO PRN (03:53)
[2024-04-04] MEDS: sitaGLIPtin PHOSPHATE 50 MG TABLET PO SCH (06:56)
[2024-04-04] MEDS: glipiZIDE-XL 5 MG TAB.ER.24 PO SCH (06:56)
[2024-04-04] MEDS: TAMSULOSIN HCL 0.4 MG CAP PO SCH (08:25)
[2024-04-04 09:10] VITALS: BP 152/78; PULSE 78; RESP 18; TEMP 97.9
[2024-04-04 09:29] LABS: POTASSIUM 4.3 mmol/L (3.5-5.1)
[2024-04-04 09:33] LABS: HEMOGLOBIN 13.1 GM/dL (11.7-16.9); MCH 30.6 pg (25.7-33.7); MCHC 33.5 g/dl (32.0-35.9); MEAN CELL VOLUME 91.5 fl (80-96); MEAN PLT VOLUME 8.8 fl (7.5-11.1); PLATELET COUNT 205 10^3/uL (134-434); RBC 4.26 M/mm3 (4.00-5.60); RDW 14.2 % (11.9-15.9); WHITE BLOOD COUNT 5.9 K/mm3 (4.0-10.0)
[2024-04-04 09:35] LABS: ALBUMIN 3.2 g/dl (3.4-5.0); BLOOD UREA NITROGEN 26.3 mg/dL (7-18)
[2024-04-04 09:38] LABS: CREATININE 0.6 mg/dL (0.55-1.3)
[2024-04-04 09:39] LABS: BILIRUBIN,TOTAL 0.5 mg/dL (0.2-1); TOT PROT 6.9 g/dl (6.4-8.2)
[2024-04-04] MEDS: PRENATAL VITAMINS W/ FOLIC ACID TABLET (FP) PO SCH (09:52)
[2024-04-04] MEDS: FLUTICASONE/UMECLIDIN/VILANTER(100-62.5-25 TRELEGY ELLIPTA) INAHLER IH SCH (09:54)
[2024-04-04] MEDS: NICOTINE 14 MG/24 HOURS TOPICAL PATCH TD SCH (09:54)
[2024-04-04] MEDS ORDERED: PATIENT'S OWN MEDICATION (NON-FORMULARY) (Linagliptin [Tradjenta] 5 MG Tablet) PO SCH (10:00)
[2024-04-05] MEDS ORDERED: methaDONE HCL 10 MG TABLET (FOR DETOX USE ONLY) PO ONE (10:00)
[2024-04-07] MEDS ORDERED: methaDONE HCL 10 MG TABLET (FOR DETOX USE ONLY) PO ONE (10:00)
== END 2024-04-04 12:15 | disposition home or self-care (01) | DRG 897 ==
LOC: YASAS 11:10 → Y6N 12:59
PROVIDERS: ADMIT Allergy & Immunology; ATTEND Allergy & Immunology
PROC: HZ2ZZZZ Detoxification Services for Substance Abuse Treatment (ICD-10-PCS; principal; 2024-04-03)
DX: F11.23 Opioid dependence with withdrawal (principal); I10 Essential (primary) hypertension; J44.9 Chronic obstructive pulmonary disease, unspecified; E11.9 Type 2 diabetes mellitus without complications; Z79.84 Long term (current) use of oral hypoglycemic drugs; Z86.11 Personal history of tuberculosis; Z72.0 Tobacco use
CPT/HCPCS: 0241U-QW; 36415; 80053; 80305; 80307; 82962; 85027; 86780; 93005; 93010; Q0162